=== PATIENT | male | born 1960 | race African-American/Black ===

== ENCOUNTER 2019-02-16 10:02 | Emergency (ER) | payer MEDICAID ==
[~2019-02-16] VITALS: Ht 182.9 cm; Wt 100.0 kg
[2019-02-16] MEDS ORDERED: METO-396 PO (10:15)
[2019-02-16] MEDS ORDERED: TAMS-11 PO (10:15)
[2019-02-16] MEDS ORDERED: ATOR40TA70 PO (10:15)
[2019-02-16] MEDS ORDERED: LINE600T14 PO (10:15)
[2019-02-16] MEDS ORDERED: BUME1TAB8 PO (10:15)
[2019-02-16 11:05] LABS: CHLORIDE 103 mEq/L (98-107)
[2019-02-16 11:06] LABS: INR 1.5; PROTHROMBIN TIME 15.4 sec (9.6-11.0)
[2019-02-16 11:13] LABS: HEMATOCRIT. 38.2 % (42.0-52.0); HEMOGLOBIN. 12.2 g/dL (14.0-18.0); MEAN CORPUSCULAR HEMOGLOBIN 28.3 pg (28.0-32.0); MEAN CORPUSCULAR VOLUME 88.6 fL (80.0-94.0); MEAN PLATELET VOLUME 8.8 fl (7.4-10.4); PLATELET 83 x1000/uL (130-400); RED BLOOD CELL COUNT 4.31 mill/uL (4.7-6.1); RED CELL DISTRIBUTION WIDTH 17.9 % (11.6-14.6)
[2019-02-16] MEDS ORDERED: LIDOCAINE HCL 1% 20ML VIAL (Pyxis) INJ ONE (11:50)
[2019-02-16] MEDS ORDERED: SODIUM BICARBONATE 4% (2.4MEQ) 5ML VIAL IV ONE (11:50)
[2019-02-16 11:52] LABS: NUCLEATED RED BLOOD CELLS 1 /100 WBC; PLATELET ESTIMATE DECREASED
[2019-02-16] MEDS ORDERED: SODIUM CHLORIDE 0.9% 1,000 ML IV ONE (12:15)
[2019-02-16] MEDS ORDERED: DEXTROSE 5% WATER 1,000 ML IV ONE (12:30)
[2019-02-16] MEDS ORDERED: DEXTROSE 50% WATER 50ML SYRINGE IV ONE (13:00)
[2019-02-16] MEDS ORDERED: AZITHROMYCIN 500 MG in DEXT 5% WATER 250 ML IV ONE (13:30)
[2019-02-16] MEDS ORDERED: CEFTRIAXONE 1 G PREMIX 50 ML IV ONE (13:30)
[2019-02-16] MEDS ORDERED: MAGNESIUM/ALUMINUM HYDROXIDE/SIMETHICONE 30ML UDC PO PRN (15:45)
[2019-02-16] MEDS ORDERED: ONDANSETRON HCL 4MG/2ML INJ IV PRN (15:45)
[2019-02-16] MEDS ORDERED: CLONIDINE 0.1MG TABLET PO PRN (15:45)
[2019-02-16] MEDS ORDERED: LORAZEPAM 2MG/ML CPJ IV PRN (15:45)
[2019-02-16] MEDS ORDERED: GUAIFENESIN 200MG/10ML SUGAR FREE UDC PO PRN (15:45)
[2019-02-16] MEDS ORDERED: ACETAMINOPHEN 325MG TABLET PO PRN (15:45)
[2019-02-16] MEDS ORDERED: MORPHINE SULFATE 2 MG/ML CPJ (NOT FOR IM USE) IV PRN (15:45)
[2019-02-16] MEDS ORDERED: HYDRALAZINE 20MG/ML VIAL IV PRN (15:45)
[2019-02-16] MEDS ORDERED: NA PHOS,M-B/NA PHOS,DI-BA ENEMA 118ML PR PRN (15:45)
[2019-02-16] MEDS ORDERED: DIPHENHYDRAMINE 50MG/ML VIAL IV PRN (15:45)
[2019-02-16] MEDS ORDERED: DOCUSATE SODIUM 100MG CAPSULE PO PRN (15:45)
[2019-02-16] MEDS ORDERED: HYDROCODONE/ACETAMINOPHEN 10/325MG TABLET PO PRN (15:45)
[2019-02-16] MEDS ORDERED: IPRATROPIUM/ALBUTEROL 0.5-3(2.5)MG/3ML NEB HHN PRN (15:45)
[2019-02-16 17:00] VITALS: BP 99/68
[2019-02-16] MEDS ORDERED: CEFTRIAXONE 2 G PREMIX 50 ML IV SCH (22:00)
[2019-02-16] MEDS ORDERED: SODIUM CHLORIDE 0.9% INJ 3ML FLUSH IVF SCH (22:00)
== END 2019-02-16 17:00 | disposition left against medical advice (07) ==
LOC: EDBD 10:02 → ER 10:38 → ENRESERV 13:54 → CANRESERV 13:54 → CANBEDREQ 15:18 → ER 17:00
DX: R18.8 Other ascites (principal); N17.9 Acute kidney failure, unspecified; E46 Unspecified protein-calorie malnutrition
CPT/HCPCS: 36415; 49083; 71045; 80053; 82962; 83690; 85025; 85610; 87040; 87070; 87205; 89050; 93005; 93970; 96365; 99291; J0456; J0696; J3490; J7030; J7060; J7070; Z7610

== ENCOUNTER 2019-02-27 17:05 | Inpatient (IN) | payer MEDICAID ==
[~2019-02-27] VITALS: Ht 180.3 cm; Wt 84.4 kg
[~2019-02-27 17:05] MED LIST: ATOR40TA70 PO; BUME1TAB8 PO; LINE600T14 PO; METO-396 PO; TAMS-11 PO
[2019-02-27] MEDS ORDERED: FURO-151 PO (17:16)
[2019-02-27] MEDS ORDERED: SODIUM CHLORIDE 0.9% 250 ML IV ONE (17:45)
[2019-02-27] MEDS ORDERED: FUROSEMIDE 20MG/2ML VIAL IVP ONE (19:30)
[2019-02-27 20:05] LABS: HEMATOCRIT. 36.8 % (42.0-52.0); HEMOGLOBIN. 11.6 g/dL (14.0-18.0); MEAN CORPUSCULAR HEMOGLOBIN 27.9 pg (28.0-32.0); MEAN CORPUSCULAR VOLUME 88.3 fL (80.0-94.0); MEAN PLATELET VOLUME 10.3 fl (7.4-10.4); PLATELET 136 x1000/uL (130-400); RED BLOOD CELL COUNT 4.16 mill/uL (4.7-6.1); RED CELL DISTRIBUTION WIDTH 18.6 % (11.6-14.6)
[2019-02-27 20:06] LABS: CHLORIDE 100 mEq/L (98-107)
[2019-02-27 20:08] LABS: INR 1.4; PARTIAL THROMBOPLASTIN TIME 28.2 sec (23.4-31.0)
[2019-02-27 20:23] LABS: NUCLEATED RED BLOOD CELLS 4 /100 WBC; PLATELET ESTIMATE NORMAL
[2019-02-28] VITALS (15 sets, daily range): BP systolic 76–103; BP diastolic 23–96
[2019-02-28] MEDS ORDERED: DEXTROSE 50% WATER 50ML SYRINGE IV PRN (03:30)
[2019-02-28] MEDS ORDERED: MORPHINE SULFATE 2 MG/ML CPJ (NOT FOR IM USE) IV PRN (03:30)
[2019-02-28] MEDS ORDERED: ONDANSETRON HCL 4MG/2ML INJ IV PRN (03:30)
[2019-02-28] MEDS: CEFTRIAXONE 1 G PREMIX 50 ML IV SCH (05:30)
[2019-02-28] MEDS: BLOOD SUGAR DIAGNOSTIC STRIP TEST SCH ×4 (06:21→21:00)
[2019-02-28] MEDS: PANTOPRAZOLE 40MG DR TABLET PO SCH ×2 (06:21→13:05)
[2019-02-28] MEDS: INSULIN LISPRO 100 UNITS/ML SUBCUT SCH ×4 (07:50→21:00)
[2019-02-28] MEDS ORDERED: SODIUM BICARBONATE 4% (2.4MEQ) 5ML VIAL IV ONE (09:57)
[2019-02-28] MEDS ORDERED: LIDOCAINE HCL 1% 20ML VIAL (Pyxis) INJ ONE (09:57)
[2019-02-28] MEDS ORDERED: FUROSEMIDE 20MG/2ML VIAL IVP NR (11:00)
[2019-02-28] MEDS ORDERED: ALBUMIN HUMAN 25GM/100ML (25%) IV NR ×2 (13:00→21:30)
[2019-02-28] MEDS: MIDODRINE HCL 5MG TABLET PO SCH ×2 (13:05→17:05)
[2019-02-28 14:00] LABS: BG BASE EXCESS -10.7 mmol/L (-2.0-2.0); BG CARBOXYHEMOGLOBIN 0.2 % (0.5-1.5); BG DEOXYHEMOGLOBIN 14.6 % (0.0-5.0); BG FRACTION INSPIRED OXYGEN 21; BG HCO3 ACT 15.1 mmol/L (22.0-26.0); BG METHEMOGLOBIN 0.2 % (0.0-1.5); BG OXYGEN SATURATION 85.3 % (92.0-98.5); BG PCO2 33.3 mmHg (35.0-45.0); BG PH 7.273 (7.350-7.450); BG PO2 57.3 mmHg (75.0-100.0); BG SAMPLE SITE RIGHT RADIAL; BG TOTAL HEMOGLOBIN 13.2 g/dL (12.0-18.0); BG VENT MODE ROOM AIR
[2019-02-28] MEDS: ENOXAPARIN 100MG/ML SYR SUBCUT SCH (14:59)
[2019-02-28] MEDS ORDERED: VANCOMYCIN 2,000 MG in DEXT 5% WATER 500 ML IV SCH (15:00)
[2019-03-01] VITALS (92 sets, daily range): BP systolic 75–172; BP diastolic 28–90
[2019-03-01] MEDS: CEFTRIAXONE 1 G PREMIX 50 ML IV SCH (05:43)
[2019-03-01] MEDS: BLOOD SUGAR DIAGNOSTIC STRIP TEST SCH (06:54)
[2019-03-01] MEDS: INSULIN LISPRO 100 UNITS/ML SUBCUT SCH (06:55)
[2019-03-01] MEDS ORDERED: LIDOCAINE HCL 1% 20ML VIAL (Pyxis) INJ ONE (08:12)
[2019-03-01] MEDS ORDERED: ALBUMIN HUMAN 25GM/100ML (25%) IV SCH (08:15)
[2019-03-01] MEDS ORDERED: NOREPINEPHRINE 32 MG in DEXT 5% WATER 468 ML IV PRN (09:00)
[2019-03-01] MEDS ORDERED: FUROSEMIDE 20MG/2ML VIAL IVP SCH (09:00)
[2019-03-01] MEDS: MIDODRINE HCL 5MG TABLET PO SCH ×3 (09:06→18:18)
[2019-03-01] MEDS: ENOXAPARIN 100MG/ML SYR SUBCUT SCH (09:07)
[2019-03-01] MEDS ORDERED: IPRATROPIUM/ALBUTEROL 0.5-3(2.5)MG/3ML NEB HHN PRN (10:15)
[2019-03-01 10:34] LABS: HEMATOCRIT. 36.6 % (42.0-52.0); HEMOGLOBIN. 11.4 g/dL (14.0-18.0); MEAN CORPUSCULAR HEMOGLOBIN 27.7 pg (28.0-32.0); MEAN CORPUSCULAR VOLUME 89.1 fL (80.0-94.0); MEAN PLATELET VOLUME 10.8 fl (7.4-10.4); PLATELET 127 x1000/uL (130-400); RED BLOOD CELL COUNT 4.11 mill/uL (4.7-6.1); RED CELL DISTRIBUTION WIDTH 18.7 % (11.6-14.6)
[2019-03-01 10:43] LABS: CHLORIDE 100 mEq/L (98-107)
[2019-03-01 10:55] LABS: NUCLEATED RED BLOOD CELLS 5 /100 WBC; PLATELET ESTIMATE SLIGHTLY DECREASED
[2019-03-01 11:00] LABS: PHOSPHORUS 8.3 mg/dL (2.5-4.9)
[2019-03-01] MEDS: IPRATROPIUM/ALBUTEROL 0.5-3(2.5)MG/3ML NEB HHN SCH ×2 (13:41→20:14)
[2019-03-01] MEDS ORDERED: DOBUTAMINE HCL 500 MG in DEXT 5% WATER 210 ML IV SCH (14:00)
[2019-03-01 14:11] LABS: CORTISOL 41.8 ucg/dL
[2019-03-01] MEDS: DOBUTAMINE HCL IN DEXTROSE 5 % 250 ML IV SCH (14:21)
[2019-03-01 14:22] LABS: HEPATITIS B SURFACE ANTIGEN NEGATIVE
[2019-03-01 14:50] LABS: HEPATITIS A AB IGM NEGATIVE (NEGATIVE)
[2019-03-01 18:27] LABS: HEMATOCRIT. 35.5 % (42.0-52.0); MEAN CORPUSCULAR HEMOGLOBIN 27.5 pg (28.0-32.0); MEAN PLATELET VOLUME 10.7 fl (7.4-10.4); PLATELET 121 x1000/uL (130-400); RED BLOOD CELL COUNT 3.99 mill/uL (4.7-6.1); RED CELL DISTRIBUTION WIDTH 18.6 % (11.6-14.6)
[2019-03-01 19:15] LABS: NUCLEATED RED BLOOD CELLS 5 /100 WBC; PLATELET ESTIMATE DECREASED
[2019-03-01 22:45] LABS: PHOSPHORUS 8.2 mg/dL (2.5-4.9)
[2019-03-02] VITALS (90 sets, daily range): BP systolic 92–137; BP diastolic 36–77
[2019-03-02] MEDS: IPRATROPIUM/ALBUTEROL 0.5-3(2.5)MG/3ML NEB HHN SCH ×4 (02:14→20:37)
[2019-03-02 04:09] LABS: HIV SCREEN 4G Non Reactive (Non Reactive)
[2019-03-02] MEDS: CEFTRIAXONE 1 G PREMIX 50 ML IV SCH (05:09)
[2019-03-02] MEDS: PANTOPRAZOLE 40MG DR TABLET PO SCH (05:09)
[2019-03-02 07:31] LABS: BG BASE EXCESS -11.9 mmol/L (-2.0-2.0); BG CARBOXYHEMOGLOBIN 0.3 % (0.5-1.5); BG DEOXYHEMOGLOBIN 7.8 % (0.0-5.0); BG FRACTION INSPIRED OXYGEN 32; BG METHEMOGLOBIN 0.1 % (0.0-1.5); BG OXYGEN SATURATION 92.2 % (92.0-98.5); BG OXYHEMOGLOBIN 91.8 % (94.0-97.0); BG PH 7.258 (7.350-7.450); BG SAMPLE SITE RIGHT BRACHIAL; BG VENT MODE NASAL CANNULA
[2019-03-02] MEDS ORDERED: SODIUM POLYSTYRENE SULFONATE 15 G/60 ML BOT PO NR (08:00)
[2019-03-02] MEDS ORDERED: ALBUMIN HUMAN 25GM/100ML (25%) IV NR (08:00)
[2019-03-02 08:54] LABS: HEMATOCRIT. 34.6 % (42.0-52.0); HEMOGLOBIN. 10.8 g/dL (14.0-18.0); MEAN CORPUSCULAR HEMOGLOBIN 27.3 pg (28.0-32.0); MEAN PLATELET VOLUME 11.1 fl (7.4-10.4); PLATELET 101 x1000/uL (130-400); RED BLOOD CELL COUNT 3.93 mill/uL (4.7-6.1); RED CELL DISTRIBUTION WIDTH 18.7 % (11.6-14.6)
[2019-03-02 09:00] LABS: INR 1.7; PROTHROMBIN TIME 17.4 sec (9.6-11.0)
[2019-03-02] MEDS: ENOXAPARIN 80MG/0.8ML SYR SUBCUT SCH (09:00)
[2019-03-02 09:08] LABS: PHOSPHORUS 8.4 mg/dL (2.5-4.9)
[2019-03-02] MEDS ORDERED: LACTULOSE 20G/30ML UDC PO NR (09:15)
[2019-03-02 10:13] LABS: NUCLEATED RED BLOOD CELLS 3 /100 WBC; PLATELET ESTIMATE SLIGHTLY DECREASED
[2019-03-02] MEDS: CITRIC ACID/SODIUM CITRATE SOLN 30ML UDC PO SCH ×3 (10:34→17:07)
[2019-03-02] MEDS: FUROSEMIDE 100MG/10ML VIAL IVP SCH (10:41)
[2019-03-02] MEDS: MIDODRINE HCL 5MG TABLET PO SCH ×3 (10:42→17:08)
[2019-03-02] MEDS: LACTULOSE 20G/30ML UDC PO SCH (11:00)
[2019-03-02] MEDS: BLOOD SUGAR DIAGNOSTIC STRIP TEST SCH ×3 (11:30→21:00)
[2019-03-02] MEDS: CALCIUM ACETATE 667MG CAPSULE PO SCH ×2 (12:47→17:08)
[2019-03-02] MEDS ORDERED: CEFEPIME 1,000 MG in DEXTROSE 5% WATER 50 ML IV SCH (13:00)
[2019-03-02] MEDS ORDERED: LIDOCAINE HCL 1% 20ML VIAL (Pyxis) INJ ONE (13:09)
[2019-03-02] MEDS ORDERED: HEPARIN 1000 UNITS/ML 10ML ONE (13:09)
[2019-03-02] MEDS: INSULIN LISPRO 100 UNITS/ML SUBCUT SCH ×3 (13:28→21:00)
[2019-03-02] MEDS: DOBUTAMINE HCL IN DEXTROSE 5 % 250 ML IV SCH (17:51)
[2019-03-03] VITALS (90 sets, daily range): BP systolic 84–126; BP diastolic 56–89
[2019-03-03] MEDS: IPRATROPIUM/ALBUTEROL 0.5-3(2.5)MG/3ML NEB HHN SCH ×3 (01:31→14:39)
[2019-03-03] MEDS: BLOOD SUGAR DIAGNOSTIC STRIP TEST SCH ×4 (05:32→20:38)
[2019-03-03] MEDS: NOREPINEPHRINE 16 MG in DEXT 5% WATER 234 ML IV PRN ×2 (05:53→22:37)
[2019-03-03] MEDS: PANTOPRAZOLE 40MG DR TABLET PO SCH (05:53)
[2019-03-03] MEDS: CALCIUM ACETATE 667MG CAPSULE PO SCH ×3 (06:00→17:54)
[2019-03-03] MEDS: INSULIN LISPRO 100 UNITS/ML SUBCUT SCH ×4 (06:00→20:39)
[2019-03-03] MEDS: MIDODRINE HCL 5MG TABLET PO SCH ×3 (08:17→17:55)
[2019-03-03] MEDS: CITRIC ACID/SODIUM CITRATE SOLN 30ML UDC PO SCH ×3 (08:17→17:54)
[2019-03-03] MEDS: LACTULOSE 20G/30ML UDC PO SCH ×3 (08:17→17:54)
[2019-03-03] MEDS: FUROSEMIDE 100MG/10ML VIAL IVP SCH (08:17)
[2019-03-03 08:18] LABS: HEMATOCRIT. 30.7 % (42.0-52.0); HEMOGLOBIN. 9.8 g/dL (14.0-18.0); MEAN CORPUSCULAR HEMOGLOBIN 27.7 pg (28.0-32.0); MEAN PLATELET VOLUME 10.5 fl (7.4-10.4); PLATELET 86 x1000/uL (130-400); RED BLOOD CELL COUNT 3.53 mill/uL (4.7-6.1)
[2019-03-03 08:29] LABS: PHOSPHORUS 7.5 mg/dL (2.5-4.9)
[2019-03-03 08:35] LABS: INR 1.5; PROTHROMBIN TIME 15.1 sec (9.6-11.0)
[2019-03-03] MEDS: ENOXAPARIN 80MG/0.8ML SYR SUBCUT SCH (09:00)
[2019-03-03 09:24] LABS: NUCLEATED RED BLOOD CELLS 1 /100 WBC; PLATELET ESTIMATE DECREASED
[2019-03-03] MEDS ORDERED: LIDOCAINE HCL 1% 20ML VIAL (Pyxis) INJ ONE (14:02)
[2019-03-03] MEDS ORDERED: SODIUM BICARBONATE 4% (2.4MEQ) 5ML VIAL IV ONE ×2 (14:02→14:48)
[2019-03-03] MEDS ORDERED: IOHEXOL-300 50 ML BOTTLE IV ONE (14:43)
[2019-03-03] MEDS ORDERED: HEPARIN 1000 UNITS/ML 10ML ONE (14:53)
[2019-03-03] MEDS ORDERED: VANCOMYCIN 1 G PREMIX 200 ML IV NR (15:00)
[2019-03-03] MEDS: DOBUTAMINE HCL IN DEXTROSE 5 % 250 ML IV SCH ×2 (16:35→22:36)
[2019-03-03] MEDS: CEFEPIME 500 MG in DEXTROSE 5% WATER 50 ML IV SCH (17:54)
[2019-03-03 18:49] LABS: HEMOGLOBIN 10.7 g/dL (14.0-18.0)
[2019-03-04] VITALS (84 sets, daily range): BP systolic 78–120; BP diastolic 50–79
[2019-03-04] MEDS: IPRATROPIUM/ALBUTEROL 0.5-3(2.5)MG/3ML NEB HHN SCH ×4 (02:08→20:39)
[2019-03-04 06:10] LABS: HEMATOCRIT. 34.7 % (42.0-52.0); MEAN CORPUSCULAR HEMOGLOBIN 27.4 pg (28.0-32.0); MEAN CORPUSCULAR VOLUME 86.7 fL (80.0-94.0); MEAN PLATELET VOLUME 10.1 fl (7.4-10.4); PLATELET 97 x1000/uL (130-400); RED BLOOD CELL COUNT 4.01 mill/uL (4.7-6.1); RED CELL DISTRIBUTION WIDTH 18.3 % (11.6-14.6)
[2019-03-04] MEDS: PANTOPRAZOLE 40MG DR TABLET PO SCH (06:21)
[2019-03-04] MEDS: CALCIUM ACETATE 667MG CAPSULE PO SCH ×3 (06:21→17:09)
[2019-03-04] MEDS: BLOOD SUGAR DIAGNOSTIC STRIP TEST SCH ×4 (06:26→21:08)
[2019-03-04] MEDS: INSULIN LISPRO 100 UNITS/ML SUBCUT SCH ×4 (06:27→21:00)
[2019-03-04 08:46] LABS: PLATELET ESTIMATE DECREASED
[2019-03-04] MEDS: CITRIC ACID/SODIUM CITRATE SOLN 30ML UDC PO SCH ×3 (09:54→17:08)
[2019-03-04] MEDS: FUROSEMIDE 100MG/10ML VIAL IVP SCH (09:54)
[2019-03-04] MEDS: LACTULOSE 20G/30ML UDC PO SCH ×2 (09:54→17:09)
[2019-03-04] MEDS: MIDODRINE HCL 5MG TABLET PO SCH ×3 (09:55→17:09)
[2019-03-04] MEDS: ENOXAPARIN 80MG/0.8ML SYR SUBCUT SCH (09:56)
[2019-03-04] MEDS: CEFEPIME 500 MG in DEXTROSE 5% WATER 50 ML IV SCH (13:00)
[2019-03-04] MEDS: NOREPINEPHRINE 16 MG in DEXT 5% WATER 234 ML IV PRN ×2 (13:51→23:53)
[2019-03-04] MEDS: DOBUTAMINE HCL IN DEXTROSE 5 % 250 ML IV SCH (17:09)
[2019-03-05] VITALS (73 sets, daily range): BP systolic 83–130; BP diastolic 45–86
[2019-03-05] MEDS: IPRATROPIUM/ALBUTEROL 0.5-3(2.5)MG/3ML NEB HHN SCH ×4 (02:10→20:10)
[2019-03-05] MEDS: BLOOD SUGAR DIAGNOSTIC STRIP TEST SCH ×4 (06:19→21:00)
[2019-03-05] MEDS: INSULIN LISPRO 100 UNITS/ML SUBCUT SCH ×4 (06:20→21:00)
[2019-03-05] MEDS: CALCIUM ACETATE 667MG CAPSULE PO SCH ×3 (06:51→17:16)
[2019-03-05] MEDS: PANTOPRAZOLE 40MG DR TABLET PO SCH (06:52)
[2019-03-05] MEDS ORDERED: LIDOCAINE HCL/PF 1% 2ML VIAL ONE (09:00)
[2019-03-05 09:19] LABS: HEMATOCRIT. 32.2 % (42.0-52.0); HEMOGLOBIN. 10.1 g/dL (14.0-18.0); MEAN CORPUSCULAR HEMOGLOBIN 27.2 pg (28.0-32.0); MEAN CORPUSCULAR VOLUME 87.1 fL (80.0-94.0); MEAN PLATELET VOLUME 9.3 fl (7.4-10.4); PLATELET 101 x1000/uL (130-400); RED CELL DISTRIBUTION WIDTH 18.9 % (11.6-14.6)
[2019-03-05 09:35] LABS: CHLORIDE 104 mEq/L (98-107)
[2019-03-05 09:43] LABS: BG BASE EXCESS -4.3 mmol/L (-2.0-2.0); BG CARBOXYHEMOGLOBIN 0.6 % (0.5-1.5); BG DEOXYHEMOGLOBIN 14.5 % (0.0-5.0); BG FRACTION INSPIRED OXYGEN 36; BG HCO3 ACT 21.5 mmol/L (22.0-26.0); BG METHEMOGLOBIN 0.3 % (0.0-1.5); BG OXYGEN SATURATION 85.4 % (92.0-98.5); BG OXYHEMOGLOBIN 84.6 % (94.0-97.0); BG PCO2 42.5 mmHg (35.0-45.0); BG PH 7.322 (7.350-7.450); BG PO2 58.5 mmHg (75.0-100.0); BG SAMPLE SITE RIGHT BRACHIAL; BG TOTAL HEMOGLOBIN 11.1 g/dL (12.0-18.0); BG VENT MODE NASAL CANNULA
[2019-03-05] MEDS: LACTULOSE 20G/30ML UDC PO SCH ×2 (10:01→17:37)
[2019-03-05] MEDS: MIDODRINE HCL 5MG TABLET PO SCH ×3 (10:01→17:16)
[2019-03-05] MEDS: FUROSEMIDE 100MG/10ML VIAL IVP SCH (10:02)
[2019-03-05 10:19] LABS: PLATELET ESTIMATE DECREASED
[2019-03-05] MEDS: NOREPINEPHRINE 16 MG in DEXT 5% WATER 234 ML IV PRN ×2 (10:51→23:25)
[2019-03-05] MEDS ORDERED: BISACODYL 10MG SUPP PR NR (11:15)
[2019-03-05 13:11] LABS: PHOSPHORUS 2.8 mg/dL (2.5-4.9)
[2019-03-05] MEDS: ENOXAPARIN 80MG/0.8ML SYR SUBCUT SCH (13:19)
[2019-03-05] MEDS: CEFEPIME 500 MG in DEXTROSE 5% WATER 50 ML IV SCH (13:20)
[2019-03-05 16:20] LABS: BG BASE EXCESS -1.7 mmol/L (-2.0-2.0); BG CARBOXYHEMOGLOBIN 0.7 % (0.5-1.5); BG DEOXYHEMOGLOBIN 7.9 % (0.0-5.0); BG FRACTION INSPIRED OXYGEN 34; BG HCO3 ACT 23.4 mmol/L (22.0-26.0); BG METHEMOGLOBIN 0.2 % (0.0-1.5); BG OXYHEMOGLOBIN 91.2 % (94.0-97.0); BG PH 7.374 (7.350-7.450); BG PO2 66.1 mmHg (75.0-100.0); BG SAMPLE SITE RIGHT BRACHIAL; BG TOTAL HEMOGLOBIN 11.3 g/dL (12.0-18.0); BG VENT MODE NASAL CANNULA
[2019-03-05] MEDS ORDERED: VANCOMYCIN 1500MG in DEXTROSE 5% WATER 250ML IV NR (18:00)
[2019-03-06] VITALS (94 sets, daily range): BP systolic 71–120; BP diastolic 39–83
[2019-03-06] MEDS: IPRATROPIUM/ALBUTEROL 0.5-3(2.5)MG/3ML NEB HHN SCH ×4 (01:28→20:06)
[2019-03-06] MEDS: BLOOD SUGAR DIAGNOSTIC STRIP TEST SCH ×3 (06:30→21:20)
[2019-03-06] MEDS: INSULIN LISPRO 100 UNITS/ML SUBCUT SCH ×3 (07:00→21:00)
[2019-03-06] MEDS: MIDODRINE HCL 5MG TABLET PO SCH ×3 (08:37→17:00)
[2019-03-06] MEDS: DEXTROSE 50% WATER 50ML SYRINGE IV PRN ×2 (08:37→19:58)
[2019-03-06] MEDS: FUROSEMIDE 100MG/10ML VIAL IVP SCH (08:37)
[2019-03-06] MEDS: LACTULOSE 20G/30ML UDC PO SCH ×2 (08:38→17:00)
[2019-03-06] MEDS: PANTOPRAZOLE 40MG DR TABLET PO SCH (09:46)
[2019-03-06 10:09] LABS: PHOSPHORUS 3.8 mg/dL (2.5-4.9)
[2019-03-06 10:38] LABS: BASOPHILS % 0.5 % (0.0-2.0); EOSINOPHILS % 0.6 % (0.0-5.0); HEMATOCRIT. 25.8 % (42.0-52.0); HEMOGLOBIN. 8.2 g/dL (14.0-18.0); LYMPHOCYTES % 9.5 % (20.0-50.0); MEAN CORPUSCULAR HEMOGLOBIN 27.6 pg (28.0-32.0); MEAN CORPUSCULAR VOLUME 86.4 fL (80.0-94.0); MONOCYTES % 9.8 % (2.0-8.0); NEUTROPHILS % 79.6 % (40.0-76.0); PLATELET 89 x1000/uL (130-400); RED BLOOD CELL COUNT 2.99 mill/uL (4.7-6.1); RED CELL DISTRIBUTION WIDTH 18.4 % (11.6-14.6)
[2019-03-06] MEDS: CEFEPIME 500 MG in DEXTROSE 5% WATER 50 ML IV SCH (11:55)
[2019-03-06] MEDS ORDERED: LIDOCAINE HCL 1% 20ML VIAL (Pyxis) INJ ONE (12:34)
[2019-03-06 12:38] LABS: CLARITY URINE CLOUDY (CLEAR); KETONES URINE NEGATIVE (NEGATIVE); LEUKOCYTE ESTERASE URINE 2+ (NEGATIVE); NITRITE URINE NEGATIVE (NEGATIVE); OCCULT BLOOD URINE 3+ (NEGATIVE); PH URINE 5.5 (4.5-8.0); PROTEIN URINE 2+ (NEGATIVE); SPECIFIC GRAVITY URINE 1.017 (1.005-1.030); UROBILINOGEN URINE 0.2 E.U./dL (0.2-1.0)
[2019-03-06 12:39] LABS: COLOR URINE YELLOW (YELLOW)
[2019-03-06 12:53] LABS: *AMPHETAMINES SCREEN URINE NEGATIVE (NEGATIVE); *BARBITURATES SCREEN URINE NEGATIVE (NEGATIVE); *BENZODIAZEPINES SCREEN URINE NEGATIVE (NEGATIVE); *COCAINE SCREEN URINE NEGATIVE (NEGATIVE)
[2019-03-06 12:54] LABS: CANNABINOID URINE SCREEN NEGATIVE (NEGATIVE); METHADONE URINE SCREEN NEGATIVE (NEGATIVE); OPIATES URINE SCREEN NEGATIVE (NEGATIVE); PHENCYCLIDINE URINE SCREEN NEGATIVE (NEGATIVE)
[2019-03-06] MEDS ORDERED: LORAZEPAM 2MG/ML CPJ IV PRN (13:00)
[2019-03-06] MEDS: ENOXAPARIN 80MG/0.8ML SYR SUBCUT SCH (15:13)
[2019-03-06 18:33] LABS: BG BASE EXCESS -1.6 mmol/L (-2.0-2.0); BG CARBOXYHEMOGLOBIN 0.4 % (0.5-1.5); BG DEOXYHEMOGLOBIN 4.7 % (0.0-5.0); BG FRACTION INSPIRED OXYGEN 40; BG METHEMOGLOBIN 0.2 % (0.0-1.5); BG OXYGEN SATURATION 95.3 % (92.0-98.5); BG OXYHEMOGLOBIN 94.7 % (94.0-97.0); BG PCO2 43.9 mmHg (35.0-45.0); BG PH 7.355 (7.350-7.450); BG PO2 83.8 mmHg (75.0-100.0); BG SAMPLE SITE RIGHT BRACHIAL; BG TOTAL HEMOGLOBIN 9.5 g/dL (12.0-18.0); BG VENT MODE NASAL CANNULA
[2019-03-06] MEDS ORDERED: PROPOFOL 10MG/ML 100ML 100 ML IV PRN (18:45)
[2019-03-06] MEDS ORDERED: ATROPINE SULFATE 1MG/10ML SYR ONE (19:00)
[2019-03-06] MEDS ORDERED: ETOMIDATE 2MG/ML 10ML VIAL IV ONE (19:00)
[2019-03-06] MEDS ORDERED: SUCCINYLCHOLINE CHLORIDE 200MG/10ML IV ONE (19:00)
[2019-03-06 20:21] LABS: BG BASE EXCESS -1.9 mmol/L (-2.0-2.0); BG CARBOXYHEMOGLOBIN 0.4 % (0.5-1.5); BG DEOXYHEMOGLOBIN 0.6 % (0.0-5.0); BG FRACTION INSPIRED OXYGEN 100; BG HCO3 ACT 24.8 mmol/L (22.0-26.0); BG METHEMOGLOBIN 0.2 % (0.0-1.5); BG OXYGEN SATURATION 99.4 % (92.0-98.5); BG OXYHEMOGLOBIN 98.8 % (94.0-97.0); BG PCO2 51.5 mmHg (35.0-45.0); BG PO2 256.2 mmHg (75.0-100.0); BG SAMPLE SITE RIGHT BRACHIAL; BG TIDAL VOLUME(mL) 500 mL; BG TOTAL HEMOGLOBIN 9.8 g/dL (12.0-18.0); BG VENT MODE VENT - A/C; BG VENT RATE 16 set
[2019-03-06 21:54] LABS: HEMATOCRIT 27.3 % (42.0-52.0); HEMOGLOBIN 8.6 g/dL (14.0-18.0)
[2019-03-07] VITALS (107 sets, daily range): BP systolic 84–123; BP diastolic 24–82
[2019-03-07] MEDS: NOREPINEPHRINE 16 MG in DEXT 5% WATER 234 ML IV PRN ×3 (00:12→21:55)
[2019-03-07] MEDS: IPRATROPIUM/ALBUTEROL 0.5-3(2.5)MG/3ML NEB HHN SCH ×4 (02:30→21:06)
[2019-03-07 05:27] LABS: EOSINOPHILS % 1.8 % (0.0-5.0); HEMATOCRIT. 27.9 % (42.0-52.0); HEMOGLOBIN. 8.8 g/dL (14.0-18.0); LYMPHOCYTES % 13.8 % (20.0-50.0); MEAN CORPUSCULAR HEMOGLOBIN 27.6 pg (28.0-32.0); MEAN CORPUSCULAR VOLUME 87.1 fL (80.0-94.0); MONOCYTES % 10.6 % (2.0-8.0); NEUTROPHILS % 72.8 % (40.0-76.0); RED CELL DISTRIBUTION WIDTH 18.7 % (11.6-14.6)
[2019-03-07 05:47] LABS: PHOSPHORUS 4.3 mg/dL (2.5-4.9)
[2019-03-07] MEDS: PANTOPRAZOLE 40MG DR TABLET PO SCH (06:30)
[2019-03-07] MEDS: INSULIN LISPRO 100 UNITS/ML SUBCUT SCH (07:00)
[2019-03-07] MEDS: DEXTROSE 50% WATER 50ML SYRINGE IV PRN ×2 (07:01→17:22)
[2019-03-07] MEDS: BLOOD SUGAR DIAGNOSTIC STRIP TEST SCH ×4 (07:10→20:36)
[2019-03-07 08:32] LABS: MEAN PLATELET VOLUME 9.5 fl (7.4-10.4)
[2019-03-07 08:33] LABS: PLATELET 105 x1000/uL (130-400)
[2019-03-07] MEDS: MIDODRINE HCL 5MG TABLET PO SCH ×3 (09:00→16:55)
[2019-03-07] MEDS: FUROSEMIDE 100MG/10ML VIAL IVP SCH (09:00)
[2019-03-07 09:47] LABS: BG BASE EXCESS -0.2 mmol/L (-2.0-2.0); BG CARBOXYHEMOGLOBIN 0.5 % (0.5-1.5); BG FRACTION INSPIRED OXYGEN 80; BG METHEMOGLOBIN 0.3 % (0.0-1.5); BG OXYHEMOGLOBIN 98.2 % (94.0-97.0); BG PCO2 43.1 mmHg (35.0-45.0); BG PH 7.381 (7.350-7.450); BG PO2 151.1 mmHg (75.0-100.0); BG SAMPLE SITE RIGHT BRACHIAL; BG TIDAL VOLUME(mL) 500 mL; BG TOTAL HEMOGLOBIN 9.7 g/dL (12.0-18.0); BG VENT MODE VENT - A/C; BG VENT RATE 16 set
[2019-03-07] MEDS ORDERED: ALBUMIN HUMAN 25GM/100ML (25%) IV NR (11:45)
[2019-03-07] MEDS: CEFEPIME 500 MG in DEXTROSE 5% WATER 50 ML IV SCH (13:42)
[2019-03-07] MEDS: LACTULOSE 20G/30ML UDC PO SCH ×2 (13:43→16:55)
[2019-03-07] MEDS: ENOXAPARIN 80MG/0.8ML SYR SUBCUT SCH (13:43)
[2019-03-07] MEDS ORDERED: SODIUM BICARBONATE 4% (2.4MEQ) 5ML VIAL IV ONE (14:05)
[2019-03-07] MEDS ORDERED: LIDOCAINE HCL 1% 20ML VIAL (Pyxis) INJ ONE (14:05)
[2019-03-07 15:54] LABS: INR 1.2; PROTHROMBIN TIME 12.4 sec (9.6-11.0)
[2019-03-07] MEDS: PHENYLEPHRINE 40 MG in DEXT 5% WATER 246 ML IV PRN ×2 (17:25→21:56)
[2019-03-07] MEDS ORDERED: PROPOFOL 10MG/ML 100ML 100 ML IV PRN (19:30)
[2019-03-07] MEDS ORDERED: VANCOMYCIN 1 G PREMIX 200 ML IV NR (20:00)
[2019-03-08] VITALS (92 sets, daily range): BP systolic 68–121; BP diastolic 45–79
[2019-03-08] MEDS ORDERED: PHENYLEPHRINE 80 MG in DEXT 5% WATER 492 ML IV PRN ×2
[2019-03-08] MEDS: IPRATROPIUM/ALBUTEROL 0.5-3(2.5)MG/3ML NEB HHN SCH ×4 (01:39→20:41)
[2019-03-08] MEDS: PHENYLEPHRINE 80 MG in DEXT 5% WATER 492 ML IV PRN ×3 (04:08→20:32)
[2019-03-08] MEDS: PANTOPRAZOLE 40MG DR TABLET PO SCH (05:34)
[2019-03-08] MEDS: BLOOD SUGAR DIAGNOSTIC STRIP TEST SCH ×4 (05:39→20:59)
[2019-03-08 05:42] LABS: BASOPHILS % 1.2 % (0.0-2.0); EOSINOPHILS % 1.1 % (0.0-5.0); HEMATOCRIT. 29.1 % (42.0-52.0); HEMOGLOBIN. 9.1 g/dL (14.0-18.0); LYMPHOCYTES % 8.3 % (20.0-50.0); MEAN CORPUSCULAR HEMOGLOBIN 27.4 pg (28.0-32.0); MEAN CORPUSCULAR VOLUME 87.8 fL (80.0-94.0); MEAN PLATELET VOLUME 9.2 fl (7.4-10.4); MONOCYTES % 10.5 % (2.0-8.0); NEUTROPHILS % 78.9 % (40.0-76.0); PLATELET 121 x1000/uL (130-400); RED BLOOD CELL COUNT 3.31 mill/uL (4.7-6.1)
[2019-03-08 05:48] LABS: PHOSPHORUS 3.7 mg/dL (2.5-4.9)
[2019-03-08] MEDS ORDERED: NOREPINEPHRINE 4MG/250ML PMX 250 ML IV ONE (08:00)
[2019-03-08] MEDS ORDERED: ALBUMIN HUMAN 25GM/100ML (25%) IV ONE (08:15)
[2019-03-08] MEDS ORDERED: NOREPINEPHRINE 32 MG in DEXT 5% WATER 468 ML IV PRN (08:30)
[2019-03-08] MEDS: NOREPINEPHRINE 32 MG in DEXT 5% WATER 468 ML IV PRN ×2 (08:58→20:32)
[2019-03-08] MEDS: FUROSEMIDE 100MG/10ML VIAL IVP SCH (09:00)
[2019-03-08] MEDS: MIDODRINE HCL 5MG TABLET PO SCH ×3 (09:08→17:55)
[2019-03-08] MEDS: LACTULOSE 20G/30ML UDC PO SCH ×2 (09:08→17:55)
[2019-03-08 09:27] LABS: BG BASE EXCESS -3.2 mmol/L (-2.0-2.0); BG CARBOXYHEMOGLOBIN 0.4 % (0.5-1.5); BG DEOXYHEMOGLOBIN 0.6 % (0.0-5.0); BG FRACTION INSPIRED OXYGEN 80; BG HCO3 ACT 21.2 mmol/L (22.0-26.0); BG METHEMOGLOBIN 0.3 % (0.0-1.5); BG OXYGEN SATURATION 99.4 % (92.0-98.5); BG OXYHEMOGLOBIN 98.7 % (94.0-97.0); BG PCO2 35.3 mmHg (35.0-45.0); BG PH 7.396 (7.350-7.450); BG PO2 212.5 mmHg (75.0-100.0); BG SAMPLE SITE RIGHT RADIAL; BG TIDAL VOLUME(mL) 500 mL; BG TOTAL HEMOGLOBIN 9.4 g/dL (12.0-18.0); BG VENT MODE VENT - A/C; BG VENT RATE 16 set
[2019-03-08] MEDS ORDERED: BISACODYL 10MG SUPP PR SCH (10:00)
[2019-03-08] MEDS ORDERED: DOPAMINE 800MG PREMIX (DOUBLE) 250 ML IV PRN (11:30)
[2019-03-08] MEDS: CEFEPIME 500 MG in DEXTROSE 5% WATER 50 ML IV SCH (13:39)
[2019-03-08] MEDS: DEXTROSE 50% WATER 50ML SYRINGE IV PRN (20:48)
[2019-03-08] MEDS: PROPOFOL 10MG/ML 100ML 100 ML IV PRN (23:51)
[2019-03-09] VITALS (99 sets, daily range): BP systolic 80–182; BP diastolic 45–108
[2019-03-09] MEDS: IPRATROPIUM/ALBUTEROL 0.5-3(2.5)MG/3ML NEB HHN SCH ×4 (02:36→21:07)
[2019-03-09] MEDS: PHENYLEPHRINE 80 MG in DEXT 5% WATER 492 ML IV PRN ×2 (04:32→21:24)
[2019-03-09 05:42] LABS: HEMATOCRIT. 30.4 % (42.0-52.0); HEMOGLOBIN. 9.4 g/dL (14.0-18.0); MEAN CORPUSCULAR HEMOGLOBIN 27.1 pg (28.0-32.0); MEAN CORPUSCULAR VOLUME 87.9 fL (80.0-94.0); MEAN PLATELET VOLUME 9.3 fl (7.4-10.4); PLATELET 140 x1000/uL (130-400); RED BLOOD CELL COUNT 3.46 mill/uL (4.7-6.1); RED CELL DISTRIBUTION WIDTH 19.2 % (11.6-14.6)
[2019-03-09] MEDS: PANTOPRAZOLE 40MG DR TABLET PO SCH (06:05)
[2019-03-09 06:06] LABS: PHOSPHORUS 3.7 mg/dL (2.5-4.9)
[2019-03-09] MEDS: BLOOD SUGAR DIAGNOSTIC STRIP TEST SCH ×4 (06:13→21:00)
[2019-03-09 07:53] LABS: BG BASE EXCESS -3.8 mmol/L (-2.0-2.0); BG DEOXYHEMOGLOBIN 2.6 % (0.0-5.0); BG FRACTION INSPIRED OXYGEN 40; BG METHEMOGLOBIN 0.2 % (0.0-1.5); BG OXYGEN SATURATION 97.4 % (92.0-98.5); BG OXYHEMOGLOBIN 97.2 % (94.0-97.0); BG PCO2 31.6 mmHg (35.0-45.0); BG PH 7.419 (7.350-7.450); BG PO2 100.2 mmHg (75.0-100.0); BG SAMPLE SITE RIGHT RADIAL; BG TIDAL VOLUME(mL) 500 mL; BG VENT MODE VENT - A/C; BG VENT RATE 16 set
[2019-03-09] MEDS ORDERED: ALBUMIN HUMAN 25GM/100ML (25%) IV NR (08:30)
[2019-03-09] MEDS: VASOPRESSIN 10 UNIT in SODIUM CHLORIDE 0.9% 99.5 ML IV PRN (08:37)
[2019-03-09] MEDS ORDERED: LIDOCAINE HCL 1% 20ML VIAL (Pyxis) INJ ONE (09:11)
[2019-03-09 10:33] LABS: NUCLEATED RED BLOOD CELLS 5 /100 WBC; PLATELET ESTIMATE NORMAL
[2019-03-09] MEDS: MIDODRINE HCL 5MG TABLET PO SCH ×3 (11:00→18:50)
[2019-03-09] MEDS: LACTULOSE 20G/30ML UDC PO SCH ×2 (11:00→18:49)
[2019-03-09] MEDS: FUROSEMIDE 100MG/10ML VIAL IVP SCH (11:00)
[2019-03-09] MEDS: ENOXAPARIN 80MG/0.8ML SYR SUBCUT SCH (11:00)
[2019-03-09] MEDS: CEFEPIME 500 MG in DEXTROSE 5% WATER 50 ML IV SCH (15:01)
[2019-03-09] MEDS: PROPOFOL 10MG/ML 100ML 100 ML IV PRN (20:39)
[2019-03-09] MEDS: NOREPINEPHRINE 32 MG in DEXT 5% WATER 468 ML IV PRN (20:47)
[2019-03-10] VITALS (94 sets, daily range): BP systolic 51–127; BP diastolic 24–100
[2019-03-10] MEDS: IPRATROPIUM/ALBUTEROL 0.5-3(2.5)MG/3ML NEB HHN SCH ×4 (01:42→20:07)
[2019-03-10 06:10] LABS: HEMATOCRIT. 28.2 % (42.0-52.0); HEMOGLOBIN. 8.8 g/dL (14.0-18.0); MEAN CORPUSCULAR HEMOGLOBIN 27.4 pg (28.0-32.0); MEAN CORPUSCULAR VOLUME 87.8 fL (80.0-94.0); MEAN PLATELET VOLUME 9.2 fl (7.4-10.4); PLATELET 126 x1000/uL (130-400); RED BLOOD CELL COUNT 3.21 mill/uL (4.7-6.1); RED CELL DISTRIBUTION WIDTH 19.4 % (11.6-14.6)
[2019-03-10] MEDS: BLOOD SUGAR DIAGNOSTIC STRIP TEST SCH ×4 (06:22→21:00)
[2019-03-10] MEDS: PANTOPRAZOLE 40MG DR TABLET PO SCH (06:24)
[2019-03-10 06:26] LABS: PHOSPHORUS 2.8 mg/dL (2.5-4.9)
[2019-03-10 07:23] LABS: PLATELET ESTIMATE NORMAL
[2019-03-10] MEDS: MIDODRINE HCL 5MG TABLET PO SCH ×3 (08:17→17:41)
[2019-03-10] MEDS: LACTULOSE 20G/30ML UDC PO SCH ×2 (08:18→17:41)
[2019-03-10] MEDS: ENOXAPARIN 80MG/0.8ML SYR SUBCUT SCH (08:18)
[2019-03-10] MEDS: FUROSEMIDE 100MG/10ML VIAL IVP SCH (08:19)
[2019-03-10] MEDS: PHENYLEPHRINE 80 MG in DEXT 5% WATER 492 ML IV PRN ×2 (09:11→17:41)
[2019-03-10] MEDS: NOREPINEPHRINE 32 MG in DEXT 5% WATER 468 ML IV PRN (12:19)
[2019-03-10] MEDS: CEFEPIME 500 MG in DEXTROSE 5% WATER 50 ML IV SCH (14:35)
[2019-03-10 20:53] LABS: BG BASE EXCESS -1.6 mmol/L (-2.0-2.0); BG CARBOXYHEMOGLOBIN 0.3 % (0.5-1.5); BG DEOXYHEMOGLOBIN 1.5 % (0.0-5.0); BG FRACTION INSPIRED OXYGEN 40; BG HCO3 ACT 22.4 mmol/L (22.0-26.0); BG METHEMOGLOBIN 0.2 % (0.0-1.5); BG OXYGEN SATURATION 98.5 % (92.0-98.5); BG PCO2 34.7 mmHg (35.0-45.0); BG PH 7.428 (7.350-7.450); BG PO2 135.3 mmHg (75.0-100.0); BG PRESSURE SUPPORT 15; BG SAMPLE SITE LEFT RADIAL; BG TIDAL VOLUME(mL) 500 mL; BG TOTAL HEMOGLOBIN 8.6 g/dL (12.0-18.0); BG VENT MODE VENT - SIMV; BG VENT RATE 10 set
[2019-03-10] MEDS ORDERED: VANCOMYCIN 1 G PREMIX 200 ML IV NR (21:00)
[2019-03-10] MEDS ORDERED: SODIUM CHLORIDE 0.9% 250 ML IV ONE (22:30)
[2019-03-10 23:43] LABS: BG CARBOXYHEMOGLOBIN 0.1 % (0.5-1.5); BG DEOXYHEMOGLOBIN 1.4 % (0.0-5.0); BG FRACTION INSPIRED OXYGEN 40; BG HCO3 ACT 20.9 mmol/L (22.0-26.0); BG METHEMOGLOBIN 0.4 % (0.0-1.5); BG OXYGEN SATURATION 98.6 % (92.0-98.5); BG OXYHEMOGLOBIN 98.1 % (94.0-97.0); BG PCO2 32.7 mmHg (35.0-45.0); BG PH 7.423 (7.350-7.450); BG SAMPLE SITE LEFT RADIAL; BG TIDAL VOLUME(mL) 500 mL; BG TOTAL HEMOGLOBIN 9.1 g/dL (12.0-18.0); BG VENT MODE VENT - A/C; BG VENT RATE 12 set
[2019-03-11] VITALS (57 sets, daily range): BP systolic 46–170; BP diastolic 25–99
[2019-03-11] MEDS: VASOPRESSIN 10 UNIT in SODIUM CHLORIDE 0.9% 99.5 ML IV PRN ×2 (00:19→05:33)
[2019-03-11] MEDS: IPRATROPIUM/ALBUTEROL 0.5-3(2.5)MG/3ML NEB HHN SCH ×3 (01:58→12:47)
[2019-03-11] MEDS: PHENYLEPHRINE 80 MG in DEXT 5% WATER 492 ML IV PRN (02:40)
[2019-03-11 05:55] LABS: HEMATOCRIT. 23.7 % (42.0-52.0); HEMOGLOBIN. 7.2 g/dL (14.0-18.0); MEAN CORPUSCULAR HEMOGLOBIN 27.2 pg (28.0-32.0); MEAN CORPUSCULAR VOLUME 89.1 fL (80.0-94.0); MEAN PLATELET VOLUME 10.3 fl (7.4-10.4); PLATELET 97 x1000/uL (130-400); RED BLOOD CELL COUNT 2.66 mill/uL (4.7-6.1); RED CELL DISTRIBUTION WIDTH 19.4 % (11.6-14.6)
[2019-03-11 06:17] LABS: PHOSPHORUS 2.9 mg/dL (2.5-4.9)
[2019-03-11] MEDS: BLOOD SUGAR DIAGNOSTIC STRIP TEST SCH (06:30)
[2019-03-11] MEDS: PANTOPRAZOLE 40MG DR TABLET PO SCH (06:51)
[2019-03-11 08:00] LABS: BG BASE EXCESS -3.2 mmol/L (-2.0-2.0); BG CARBOXYHEMOGLOBIN 0.8 % (0.5-1.5); BG DEOXYHEMOGLOBIN 4.7 % (0.0-5.0); BG HCO3 ACT 20.9 mmol/L (22.0-26.0); BG METHEMOGLOBIN 0.3 % (0.0-1.5); BG OXYGEN SATURATION 95.2 % (92.0-98.5); BG OXYHEMOGLOBIN 94.2 % (94.0-97.0); BG PCO2 33.5 mmHg (35.0-45.0); BG PH 7.414 (7.350-7.450); BG PO2 76.8 mmHg (75.0-100.0); BG SAMPLE SITE RIGHT RADIAL; BG TIDAL VOLUME(mL) 500 mL; BG TOTAL HEMOGLOBIN 7.3 g/dL (12.0-18.0); BG VENT MODE VENT - A/C; BG VENT RATE 12 set
[2019-03-11] MEDS: ENOXAPARIN 80MG/0.8ML SYR SUBCUT SCH (08:04)
[2019-03-11] MEDS: FUROSEMIDE 100MG/10ML VIAL IVP SCH (08:04)
[2019-03-11] MEDS: MIDODRINE HCL 5MG TABLET PO SCH (08:05)
[2019-03-11 08:16] LABS: PLATELET ESTIMATE SLIGHTLY DECREASED
[2019-03-11] MEDS: LACTULOSE 20G/30ML UDC PO SCH (08:19)
[2019-03-11] MEDS ORDERED: ALBUMIN HUMAN 25GM/100ML (25%) IV NR ×2 (10:20→11:41)
[2019-03-11] MEDS ORDERED: NOREPINEPHRINE 32 MG in SODIUM CHLORIDE 0.9% 468 ML IV SCH (10:30)
[2019-03-11] MEDS ORDERED: PHENYLEPHRINE 80 MG in SODIUM CHLORIDE 0.9% 492 ML IV SCH (10:30)
[2019-03-11 11:03] LABS: BG BASE EXCESS -6.6 mmol/L (-2.0-2.0); BG CARBOXYHEMOGLOBIN 0.5 % (0.5-1.5); BG DEOXYHEMOGLOBIN 1.9 % (0.0-5.0); BG FRACTION INSPIRED OXYGEN 100; BG HCO3 ACT 19.5 mmol/L (22.0-26.0); BG METHEMOGLOBIN 0.7 % (0.0-1.5); BG OXYGEN SATURATION 98.1 % (92.0-98.5); BG OXYHEMOGLOBIN 96.9 % (94.0-97.0); BG PCO2 41.5 mmHg (35.0-45.0); BG PH 7.289 (7.350-7.450); BG PO2 129.7 mmHg (75.0-100.0); BG SAMPLE SITE RIGHT RADIAL; BG TIDAL VOLUME(mL) 500 mL; BG VENT MODE VENT - A/C; BG VENT RATE 12 set
[2019-03-11] MEDS ORDERED: OCTREOTIDE 1,000 MCG in SODIUM CHLORIDE 0.9% 100 ML IV SCH (13:00)
[2019-03-11] MEDS ORDERED: PANTOPRAZOLE SODIUM 40 MG/VIAL IV SCH (21:00)
== END 2019-03-11 13:03 | disposition expired | DRG 720 ==
LOC: ER 17:05 → 6WST 21:07 → EDBEDREQTM 21:09 → EDBEDREQ 21:09 → ENRESERV 23:09 → MICUSO 02-28 20:45
PROVIDERS: ADMIT Internal Medicine; ATTEND Internal Medicine
PROC: 0W9G3ZZ Drainage of Peritoneal Cavity, Percutaneous Approach (ICD-10-PCS; 2019-02-28)
PROC: 05H533Z Insertion of Infusion Device into Right Subclavian Vein, Percutaneous Approach (ICD-10-PCS; 2019-03-01)
PROC: B546ZZA Ultrasonography of Right Subclavian Vein, Guidance (ICD-10-PCS; 2019-03-01)
PROC: 02HV33Z Insertion of Infusion Device into Superior Vena Cava, Percutaneous Approach (ICD-10-PCS; 2019-03-02)
PROC: B548ZZA Ultrasonography of Superior Vena Cava, Guidance (ICD-10-PCS; 2019-03-02)
PROC: 02H633Z Insertion of Infusion Device into Right Atrium, Percutaneous Approach (ICD-10-PCS; 2019-03-03)
PROC: B5181ZA Fluoroscopy of Superior Vena Cava using Low Osmolar Contrast, Guidance (ICD-10-PCS; 2019-03-03)
PROC: B548ZZA Ultrasonography of Superior Vena Cava, Guidance (ICD-10-PCS; 2019-03-03)
PROC: 0W993ZZ Drainage of Right Pleural Cavity, Percutaneous Approach (ICD-10-PCS; 2019-03-03)
PROC: 5A1D70Z Performance of Urinary Filtration, Intermittent, Less than 6 Hours Per Day (ICD-10-PCS; 2019-03-03)
PROC: 5A1D70Z Performance of Urinary Filtration, Intermittent, Less than 6 Hours Per Day (ICD-10-PCS; 2019-03-05)
PROC: 5A1955Z Respiratory Ventilation, Greater than 96 Consecutive Hours (ICD-10-PCS; 2019-03-06)
PROC: 0BH17EZ Insertion of Endotracheal Airway into Trachea, Via Natural or Artificial Opening (ICD-10-PCS; 2019-03-06)
PROC: 06HY33Z Insertion of Infusion Device into Lower Vein, Percutaneous Approach (ICD-10-PCS; 2019-03-06)
PROC: B54CZZA Ultrasonography of Left Lower Extremity Veins, Guidance (ICD-10-PCS; 2019-03-06)
PROC: 0W9G3ZZ Drainage of Peritoneal Cavity, Percutaneous Approach (ICD-10-PCS; 2019-03-07)
PROC: 5A1D70Z Performance of Urinary Filtration, Intermittent, Less than 6 Hours Per Day (ICD-10-PCS; 2019-03-07)
PROC: 0W993ZZ Drainage of Right Pleural Cavity, Percutaneous Approach (ICD-10-PCS; 2019-03-08)
PROC: 5A1D70Z Performance of Urinary Filtration, Intermittent, Less than 6 Hours Per Day (ICD-10-PCS; 2019-03-08)
PROC: 02HV33Z Insertion of Infusion Device into Superior Vena Cava, Percutaneous Approach (ICD-10-PCS; 2019-03-09)
PROC: B548ZZA Ultrasonography of Superior Vena Cava, Guidance (ICD-10-PCS; 2019-03-09)
PROC: 5A1D70Z Performance of Urinary Filtration, Intermittent, Less than 6 Hours Per Day (ICD-10-PCS; 2019-03-09)
PROC: 0BH17EZ Insertion of Endotracheal Airway into Trachea, Via Natural or Artificial Opening (ICD-10-PCS; principal; 2019-03-11)
PROC: 5A1D70Z Performance of Urinary Filtration, Intermittent, Less than 6 Hours Per Day (ICD-10-PCS; 2019-03-11)
PROC: 30233N1 Transfusion of Nonautologous Red Blood Cells into Peripheral Vein, Percutaneous Approach (ICD-10-PCS; 2019-03-11)
DX: A41.9 Sepsis, unspecified organism (principal); J96.01 Acute respiratory failure with hypoxia; D65 Disseminated intravascular coagulation [defibrination syndrome]; E43 Unspecified severe protein-calorie malnutrition; I50.23 Acute on chronic systolic (congestive) heart failure; J18.9 Pneumonia, unspecified organism; R65.21 Severe sepsis with septic shock; R57.0 Cardiogenic shock; J91.8 Pleural effusion in other conditions classified elsewhere; I82.431 Acute embolism and thrombosis of right popliteal vein; I13.0 Hypertensive heart and chronic kidney disease with heart failure and stage 1 through stage 4 chronic kidney disease, or unspecified chronic kidney disease; I27.20 Pulmonary hypertension, unspecified; N17.9 Acute kidney failure, unspecified; D68.9 Coagulation defect, unspecified; E11.22 Type 2 diabetes mellitus with diabetic chronic kidney disease; E87.2 Acidosis; E11.621 Type 2 diabetes mellitus with foot ulcer; E87.1 Hypo-osmolality and hyponatremia; E87.5 Hyperkalemia; K70.40 Alcoholic hepatic failure without coma; L03.116 Cellulitis of left lower limb; N18.9 Chronic kidney disease, unspecified; R18.8 Other ascites; I42.9 Cardiomyopathy, unspecified; D64.9 Anemia, unspecified; E87.0 Hyperosmolality and hypernatremia; E86.9 Volume depletion, unspecified; F10.10 Alcohol abuse, uncomplicated; K74.60 Unspecified cirrhosis of liver; N40.0 Benign prostatic hyperplasia without lower urinary tract symptoms; R29.6 Repeated falls; K62.5 Hemorrhage of anus and rectum; L97.519 Non-pressure chronic ulcer of other part of right foot with unspecified severity; S51.001A Unspecified open wound of right elbow, initial encounter; W18.39XA Other fall on same level, initial encounter; Z78.1 Physical restraint status; Z82.49 Family history of ischemic heart disease and other diseases of the circulatory system; Z83.3 Family history of diabetes mellitus; Z91.19 Patient's noncompliance with other medical treatment and regimen; Z79.899 Other long term (current) drug therapy; Z68.25 Body mass index [BMI] 25.0-25.9, adult; Y93.89 Activity, other specified; Y92.89 Other specified places as the place of occurrence of the external cause; Y99.8 Other external cause status
CPT/HCPCS: 32555; 36415; 36600; 49083; 71045; 73610; 76700; 76770; 76881; 76937; 77001; 80048; 80202; 80305; 81003; 82040; 82140; 82375; 82533; 82550; 82805; 82962; 83036; 83615; 83735; 83880; 84100; 84134; 84145; 84443; 84450; 84460; 84478; 84484; 85014; 85018; 86705; 86709; 86803; 86850; 86900; 86920; 87070; 87340; 87389; 88108; 88312; 93005; 93306; 93970; 94002; 94003; 94640; 96361; 96365; 96375; 99285; A6261; C1725; C1752; C1769; J0330; J0461; J0692; J0696; J1250; J1265; J1644; J1650; J1815; J1940; J2060; J2270; J2354; J2370; J2405; J2704; J3370; J3490; J7040; J7042; J7050; J7060; J7620; P9016; P9047; Q9967